=== PATIENT | female | born 1970 | race Caucasian/White ===

== ENCOUNTER → 2018-04-10 | Outpatient (CLI) | payer OTHER ==
--- NOTE | 2018-04-10 17:12 | RADIOLOGY IMAGING REPORT ---
[place] [facility] [place] NAME: Shiloh Pham : 1970 MR: [id number] V: [id number] EXAM DATE: ORDERING PHYSICIAN: RIGO YO TECHNOLOGIST: Location: [facility] Patient: Shiloh Pham : 1970 Visit/Account:[id number] Date of Sevice: 04/10/2018 PELVIC HISTORY: Abnormal vaginal bleeding TECHNIQUE: Transabdominal and transvaginal ultrasound pelvis. COMPARISON: None. FINDINGS: Uterus: ; 7.6 cm length x 3.7 cm AP x 4.2 cm transverse. Myometrium: The myometrium appears mildly heterogeneous which could be related to adenomyosis. Endometrium: Unremarkable; double thickness 3.6 mm. Cervix: Nabothian cysts. Ovaries: Right - 2.3 x 2.3 x 1.1 cm Left - not seen Blood flow is documented in the right ovary by duplex Doppler ultrasound. Adnexa: Prominent left adnexal vessels. Free pelvic fluid: None. IMPRESSION: Nabothian cysts Homogeneous endometrium Left ovary not seen however the left adnexal vessels appeared prominent Possible adenomyosis Report Dictated By: kAua Ramirez MD at 04/10/2018 4:55 PM Report E-Signed By: Akua Ramirez MD at 04/10/2018 5:08 PM WSN:[id number]
== END ==
LOC: US 15:36
PROVIDERS: ATTEND Nurse Practitioner Family
DX: N88.8 Other specified noninflammatory disorders of cervix uteri (principal)
CPT/HCPCS: 76856